=== PATIENT | female | born 1995 | race Hispanic/Latino ===

== ENCOUNTER 2021-09-22 12:15 | Inpatient (IN) | payer BC ==
[~2021-09-22 12:15] MED LIST: Iopamidol-370 76% 500 ML 1 ML ONE
[2021-09-22 13:06] LABS: #Eosinphils 0.1 thou/uL (0.0-0.7); #Lymphocytes 1.2 thou/uL (1.20-3.40); #Monocytes 0.6 thou/uL (0.11-0.59); #Neutrophils 6.2 thou/uL (1.40-6.50); %Basophils 0.4 % (0.0-1.0); %Eosinophils 1.2 % (0.0-10.0); %Lymphocytes 14.3 % (21.0-51.0); %Monocytes 7.7 % (0.0-10.0); %Neutrophils 76.5 % (42.0-75.0); Hemoglobin 12.7 g/dL (12.0-16.0); Mean Corpuscular HGB CONC 33.2 g/dL (32.0-36.0); Mean Corpuscular Hemoglobin 28.2 pg (27.0-31.0); Mean Platelet Volume 7.3 fL (7.4-10.4); Platelet Count 388 thou/uL (130-400); RBC Distribution Width 12.8 % (11.5-14.5); Red Blood Cell (RBC) Count 4.51 mill/uL (4.20-5.40); White Blood Cell (WBC) Count 8.1 thou/uL (4.8-10.8)
[2021-09-22] MEDS ORDERED: Ondansetron PF 4 MG/2 ML Vial ONE (13:09)
[2021-09-22] MEDS ORDERED: Fentanyl 100 MCG/2 ML VIAL ONE (13:09)
[2021-09-22 13:16] LABS: BHCG - Serum Negative (NEGATIVE); Pregs Control Bar Appear? YES (CONTROL BAR)
[2021-09-22 13:17] LABS: Pregs Control Background? CLEAR/WHITE (CLR/WHITE)
[2021-09-22 13:21] LABS: Bacteria/HPF None Seen HPF (None Seen); Bilirubin Negative (Negative); Blood, Urine 3+ (Negative); Clarity Clear (Clear); Glucose, Urine (Dipstick) 150 mg/dL (Negative); Ketone, Urine Negative (Negative); Leukocyte Negative Leu/uL (Negative); Nitrite Negative (Negative); Protein, Urine (Dipstick) Negative (Neg-Trace); RBC/HPF 21-50 HPF (0-3); Specific Gravity, Urine 1.012 (1.002-1.036); Squamous Epithelial 0-3 HPF (0-3); Urobilinogen Normal mg/dL (Less than 2); WBC/HPF 0-3 HPF (0-3); pH, Urine 7.5 (5.0-9.0)
[2021-09-22 13:33] LABS: ALT (SGPT) 18 U/L (8-55); AST (SGOT) 13 U/L (5-34); Albumin 4.3 g/dL (3.5-5.0); Alkaline Phosphatase 100 U/L (40-110); Anion Gap 13 mmol/L (10-20); BUN (Urea Nitrogen) 8 mg/dL (7.0-18.7); Bilirubin, Total 0.2 mg/dL (0.2-1.2); Calc. Creatinine Clearance 0 mL/min (70-130); Calcium 9.4 mg/dL (7.8-10.44); Carbon Dioxide 28 mmol/L (22-29); Chloride 100 mmol/L (98-107); Globulin 3.6 g/dL (2.4-3.5); Glucose 134 mg/dL (70-105); Lipase 36 U/L (8-78); Potassium 3.8 mmol/L (3.5-5.1); Protein, Total 7.9 g/dL (6.0-8.3); Sodium 137 mmol/L (136-145)
[2021-09-22] MEDS ORDERED: Ondansetron PF 4 MG/2 ML Vial IVP PRN (19:53)
[2021-09-22] MEDS ORDERED: Morphine 2 MG/ML VIAL SLOW IVP PRN (19:54)
[2021-09-22 20:30] VITALS: BMI 38.2
[2021-09-22] MEDS: Sodium Chloride 0.9% 1,000 ML IV SCH (20:36)
[2021-09-22] MEDS: Ketorolac Tromethamine 30 MG/ML VIAL IVP PRN (20:59)
[2021-09-23] MEDS: Sodium Chloride 0.9% 1,000 ML IV SCH ×3 (04:30→21:06)
[2021-09-23 06:34] LABS: #Eosinphils 0.1 thou/uL (0.0-0.7); #Monocytes 0.6 thou/uL (0.11-0.59); #Neutrophils 2.5 thou/uL (1.40-6.50); %Basophils 0.7 % (0.0-1.0); %Eosinophils 2.2 % (0.0-10.0); %Lymphocytes 23.2 % (21.0-51.0); %Monocytes 13.4 % (0.0-10.0); %Neutrophils 60.5 % (42.0-75.0); Hemoglobin 10.6 g/dL (12.0-16.0); Mean Corpuscular HGB CONC 32.4 g/dL (32.0-36.0); Mean Corpuscular Hemoglobin 27.9 pg (27.0-31.0); Mean Corpuscular Volume 86.3 fL (78.0-98.0); Mean Platelet Volume 7.5 fL (7.4-10.4); Platelet Count 311 thou/uL (130-400); RBC Distribution Width 12.8 % (11.5-14.5); White Blood Cell (WBC) Count 4.2 thou/uL (4.8-10.8)
[2021-09-23 06:54] LABS: Hemoglobin A1c 6.9 % (4.0-6.0)
[2021-09-23 06:59] LABS: ALT (SGPT) 820 U/L (8-55); AST (SGOT) 791 U/L (5-34); Albumin 3.3 g/dL (3.5-5.0); Alkaline Phosphatase 133 U/L (40-110); Anion Gap 10 mmol/L (10-20); BUN (Urea Nitrogen) 7 mg/dL (7.0-18.7); Bilirubin, Total 1.7 mg/dL (0.2-1.2); Calc. Creatinine Clearance 193 mL/min (70-130); Calcium 8.3 mg/dL (7.8-10.44); Carbon Dioxide 25 mmol/L (22-29); Cardiac Risk 4.2 (Less than 4.5); Chloride 108 mmol/L (98-107); Cholesterol 133 mg/dl (< 200 Desired); Globulin 2.7 g/dL (2.4-3.5); Glucose 120 mg/dL (70-105); HDL Cholesterol 32 mg/dL (>60 Neg Risk); LDL Cholesterol, Calculated 85 mg/dL; Potassium 4.1 mmol/L (3.5-5.1); Sodium 139 mmol/L (136-145); Triglycerides 79 mg/dL (Less than 150)
[2021-09-23 11:33] LABS: SARS-CoV-2 PCR by NAA Not Detected (NotDetected)
[2021-09-23 18:49] LABS: Iron 134 ug/dL (50-170); Iron Binding Capacity, Total 283 mcg/dL (265-497)
[2021-09-23 19:06] LABS: HBSAg Index 0.27 S/CO (0-0.99); Hep B Surf Ag Non-Reactive S/CO (NonReactive)
[2021-09-23 19:07] LABS: Hep C IgG Ab Non-Reactive (NonReactive); Hep C Index 0.08 S/CO (0-0.79)
[2021-09-23] MEDS ORDERED: Piperacillin/Tazobactam 3.375 GM in Sodium Chloride 0.9% 100 ML IVPB SCH ×2 (20:00→21:00)
[2021-09-23] MEDS: Pantoprazole 40 MG VIAL IVP SCH (22:16)
[2021-09-24] MEDS: Piperacillin/Tazobactam 3.375 GM in Sodium Chloride 0.9% 100 ML IVPB SCH ×3 (00:45→16:30)
[2021-09-24] MEDS: Sodium Chloride 0.9% 1,000 ML IV SCH ×3 (03:14→20:00)
[2021-09-24] MEDS: Ketorolac Tromethamine 30 MG/ML VIAL IVP PRN (03:15)
[2021-09-24 07:18] LABS: #Eosinphils 0.2 thou/uL (0.0-0.7); #Lymphocytes 1.1 thou/uL (1.20-3.40); #Monocytes 0.5 thou/uL (0.11-0.59); #Neutrophils 3.3 thou/uL (1.40-6.50); %Basophils 0.6 % (0.0-1.0); %Eosinophils 3.9 % (0.0-10.0); %Lymphocytes 20.8 % (21.0-51.0); %Monocytes 9.5 % (0.0-10.0); %Neutrophils 65.2 % (42.0-75.0); Hemoglobin 10.3 g/dL (12.0-16.0); Mean Corpuscular HGB CONC 33.5 g/dL (32.0-36.0); Mean Corpuscular Hemoglobin 28.8 pg (27.0-31.0); Mean Corpuscular Volume 85.8 fL (78.0-98.0); Mean Platelet Volume 8.1 fL (7.4-10.4); Platelet Count 288 thou/uL (130-400); RBC Distribution Width 12.9 % (11.5-14.5); White Blood Cell (WBC) Count 5.1 thou/uL (4.8-10.8)
[2021-09-24 07:44] LABS: ALT (SGPT) 527 U/L (8-55); AST (SGOT) 197 U/L (5-34); Albumin 3.1 g/dL (3.5-5.0); Alkaline Phosphatase 120 U/L (40-110); Anion Gap 12 mmol/L (10-20); BUN (Urea Nitrogen) 6 mg/dL (7.0-18.7); Bilirubin, Total 0.6 mg/dL (0.2-1.2); Calc. Creatinine Clearance 196 mL/min (70-130); Carbon Dioxide 24 mmol/L (22-29); Chloride 107 mmol/L (98-107); Globulin 3.1 g/dL (2.4-3.5); Glucose 90 mg/dL (70-105); Lipase 18 U/L (8-78); Protein, Total 6.2 g/dL (6.0-8.3); Sodium 139 mmol/L (136-145)
[2021-09-24] MEDS: Pantoprazole 40 MG VIAL IVP SCH ×2 (10:41→21:03)
[2021-09-24] MEDS ORDERED: Lidocaine 1% w/Epinephrine 1:100K 20 ML VIAL ONE (13:19)
[2021-09-24] MEDS ORDERED: Iothalamate Meglumine 60% 50 ML VIAL FS ONE (13:19)
[2021-09-24] MEDS ORDERED: Bupivacaine PF 0.5% 30 ML VIAL ONE (13:19)
[2021-09-24] MEDS ORDERED: Lidocaine 2% Jelly 5 ML TUBE ONE (13:27)
[2021-09-24] MEDS ORDERED: Midazolam HCl 2 mg/2 ml Vial ONE ×2 (13:27→13:41)
[2021-09-24] MEDS ORDERED: Fentanyl 100 MCG/2 ML VIAL ONE ×3 (13:27→15:33)
[2021-09-24] MEDS ORDERED: Ondansetron PF 4 MG/2 ML Vial ONE (13:45)
[2021-09-24] MEDS ORDERED: Ketorolac Tromethamine 30 MG/ML VIAL ONE (13:45)
[2021-09-24] MEDS ORDERED: Meperidine HCl/PF 25 MG/ML VIAL ONE (13:45)
[2021-09-24] MEDS ORDERED: PROPOFOL 200 MG/20 ML VIAL ONE (13:45)
[2021-09-24] MEDS ORDERED: Famotidine/PF 20 mg/2ml Vial ONE (13:45)
[2021-09-24] MEDS ORDERED: Rocuronium Bromide 10 MG/ML (10ML VIAL) ONE (13:45)
[2021-09-24] MEDS ORDERED: Lidocaine 1% PF 5 ML VIAL ONE (13:45)
[2021-09-24] MEDS ORDERED: SUGAMMADEX SODIUM 200 MG/2 ML VIAL ONE (13:45)
[2021-09-24] MEDS ORDERED: Dexamethasone 20 MG/5 ML VIAL ONE (13:45)
[2021-09-24] MEDS ORDERED: Metoclopramide HCl 10 MG/2 ML VIAL ONE (13:45)
[2021-09-24] MEDS ORDERED: Ondansetron HCl/PF 4 MG/2 ML Vial IVP PRN (15:13)
[2021-09-24] MEDS ORDERED: Promethazine HCl 25 MG/ML VIAL IM PRN (15:13)
[2021-09-24] MEDS ORDERED: Promethazine HCl 25 MG/ML VIAL IVPB PRN (15:13)
[2021-09-24] MEDS ORDERED: traMADol HCl 50 MG TAB PO PRN (15:38)
[2021-09-24] MEDS: traMADol HCl 50 MG TAB PO PRN (16:30)
[2021-09-24] MEDS: Acetaminophen 325 MG TAB PO SCH ×2 (16:30→22:23)
[2021-09-24 18:05] LABS: HBCM Index 0.07 S/CO (0-0.79); Hep A IgM AB Non-Reactive (NonReactive); Hep A IgM S/CO 0.16 S/CO (0-0.79); Hepatitis B Core IgM Abs Non-Reactive (NonReactive)
[2021-09-25] MEDS: Piperacillin/Tazobactam 3.375 GM in Sodium Chloride 0.9% 100 ML IVPB SCH ×2 (01:55→08:45)
[2021-09-25] MEDS: Sodium Chloride 0.9% 1,000 ML IV SCH ×2 (04:20→08:41)
[2021-09-25] MEDS: Acetaminophen 325 MG TAB PO SCH ×2 (04:51→10:40)
[2021-09-25 06:59] LABS: #Lymphocytes 0.9 thou/uL (1.20-3.40); #Monocytes 0.6 thou/uL (0.11-0.59); #Neutrophils 9.1 thou/uL (1.40-6.50); %Basophils 0.1 % (0.0-1.0); %Eosinophils 0.1 % (0.0-10.0); %Lymphocytes 8.1 % (21.0-51.0); %Monocytes 5.9 % (0.0-10.0); %Neutrophils 85.7 % (42.0-75.0); Hemoglobin 10.7 g/dL (12.0-16.0); Mean Corpuscular HGB CONC 33.4 g/dL (32.0-36.0); Mean Corpuscular Hemoglobin 28.5 pg (27.0-31.0); Mean Corpuscular Volume 85.4 fL (78.0-98.0); Mean Platelet Volume 7.7 fL (7.4-10.4); Platelet Count 356 thou/uL (130-400); RBC Distribution Width 12.7 % (11.5-14.5); Red Blood Cell (RBC) Count 3.74 mill/uL (4.20-5.40); White Blood Cell (WBC) Count 10.6 thou/uL (4.8-10.8)
[2021-09-25 07:24] LABS: ALT (SGPT) 383 U/L (8-55); AST (SGOT) 70 U/L (5-34); Albumin 3.5 g/dL (3.5-5.0); Alkaline Phosphatase 117 U/L (40-110); Anion Gap 11 mmol/L (10-20); BUN (Urea Nitrogen) 6 mg/dL (7.0-18.7); Bilirubin, Direct 0.2 mg/dL (0.1-0.3); Bilirubin, Total 0.5 mg/dL (0.2-1.2); Calc. Creatinine Clearance 187 mL/min (70-130); Calcium 8.8 mg/dL (7.8-10.44); Carbon Dioxide 27 mmol/L (22-29); Chloride 104 mmol/L (98-107); Glucose 112 mg/dL (70-105); Lipase 17 U/L (8-78); Potassium 3.8 mmol/L (3.5-5.1); Protein, Total 6.6 g/dL (6.0-8.3); Sodium 138 mmol/L (136-145)
[2021-09-25] MEDS: Pantoprazole 40 MG VIAL IVP SCH (08:39)
[2021-09-25] MEDS ORDERED: Ibuprofen 200 MG TAB PO PRN (08:41)
[2021-09-25] MEDS: traMADol HCl 50 MG TAB PO PRN (08:45)
[2021-09-25 14:07] VITALS: BP 94/61; TEMP 98.1
[2021-09-26 15:15] LABS: Alpha-1-Antitrypsin 141 mg/dL (100-188); Smooth Muscle Total ABS 4 Units (0-19)
== END 2021-09-25 14:34 | disposition home or self-care (01) | DRG 418 ==
LOC: ERS 12:15 → T4-B 18:16 → OBSVTOIN 09-23 19:54
PROVIDERS: ADMIT Hospitalist; ATTEND Family Medicine
PROC: 0FT44ZZ Resection of Gallbladder, Percutaneous Endoscopic Approach (ICD-10-PCS; principal; 2021-09-24)
PROC: BF131ZZ Fluoroscopy of Gallbladder and Bile Ducts using Low Osmolar Contrast (ICD-10-PCS; 2021-09-24)
DX: K80.00 Calculus of gallbladder with acute cholecystitis without obstruction (principal); B17.9 Acute viral hepatitis, unspecified; Z20.822 Contact with and (suspected) exposure to COVID-19; R73.03 Prediabetes; M06.9 Rheumatoid arthritis, unspecified; F17.210 Nicotine dependence, cigarettes, uncomplicated; Z98.890 Other specified postprocedural states; Z87.19 Personal history of other diseases of the digestive system
CPT/HCPCS: 36415; 47532; 74177; 74181; 76705; 78227; 80048; 80053; 80061; 80074; 80076; 81003; 81015; 82103; 82104; 83036; 83516; 83540; 83550; 83690; 83735; 84703; 85025; 88304; 96375; A9537; C9113; G0378; J0500; J1100; J1885; J2175; J2250; J2405; J2543; J2704; J2765; J3010; J3490; J7050; Q9961-U8; Q9967; S0020; S0028; U0003; U0005

== ENCOUNTER 2025-06-22 15:44 | Outpatient (CLI) | payer BC | END 2025-06-22 15:45 | disposition home or self-care (01) | LOC: BICRAD 15:44 | PROVIDERS: ATTEND Internal Medicine Rheumatology | DX: R76.12 Nonspecific reaction to cell mediated immunity measurement of gamma interferon antigen response without active tuberculosis (principal); Z79.899 Other long term (current) drug therapy | CPT/HCPCS: 71046 ==